=== PATIENT | male | born 1935 | race Caucasian/White ===

== ENCOUNTER 2019-03-04 05:13 | Inpatient (IN) ==
[2019-02-25 09:50] LABS: HEMATOCRIT 45.5 % (42.0-52.0); HEMOGLOBIN 15.1 g/dL (14.0-18.0); MCH 31.5 PG (27-31); MCHC 33.2 g/dL (33-37); MCV 94.8 FL (81-99); MPV 9.9 FL (7.4-10.4); RBC 4.8 XMIL (4.7-6.1); RDW 14.3 % (11.5-14.5); WBC 5.33 X1000 (4.8-10.8)
[2019-02-25 10:20] LABS: AGAP 11; BUN 18 mg/dL (8-22); CALCIUM 9.1 mg/dL (8.8-10.2); CHLORIDE 105 mmol/L (98-107); COSMO 284; ESTIMATED GFR > 60; GLUCOSE 105 mg/dL (70-104); POTASSIUM 4.6 mmol/L (3.5-5.1); SODIUM 141 mmol/L (136-145); TCO2 25 mmol/L (25-35)
[2019-03-04] MEDS ORDERED: INVANZ 1 GM/NS 1 GM/50 ML IVPB ONE (05:37)
[2019-03-04] MEDS ORDERED: LR 500 ML ONE (05:37)
[2019-03-04] MEDS ORDERED: ENTEREG ONE (05:37)
[2019-03-04] MEDS ORDERED: FENTANYL ONE ×3 (06:26→11:02)
[2019-03-04] MEDS ORDERED: DIPRIVAN 1% ONE (06:26)
[2019-03-04] MEDS ORDERED: ROBINUL ONE ×2 (06:28→12:15)
[2019-03-04] MEDS ORDERED: QUELICIN (DOSE) ONE (06:28)
[2019-03-04] MEDS ORDERED: NORCURON ONE (06:28)
[2019-03-04] MEDS ORDERED: STERILE WATER INJ. ONE (06:28)
[2019-03-04] MEDS ORDERED: XYLOCAINE-MPF 2% ONE (06:28)
[2019-03-04] MEDS ORDERED: LR 1,000 ML ONE ×2 (06:30→13:38)
[2019-03-04] MEDS ORDERED: XYLOCAINE 1%/EPI 1:100,000 ONE (06:30)
[2019-03-04] MEDS ORDERED: REGLAN ONE (06:43)
[2019-03-04] MEDS ORDERED: PEPCID ONE (06:43)
[2019-03-04] MEDS ORDERED: EXPAREL 1.3% ONE (07:16)
[2019-03-04] MEDS ORDERED: MARCAINE 0.5% ONE (07:16)
[2019-03-04 07:55] LABS: URINE SOURCE CATH
[2019-03-04 07:58] LABS: BILIRUBIN URINE NEGATIVE (NEGATIVE); BLOOD URINE NEGATIVE (NEGATIVE); COLOR YELLOW; GLUCOSE URINE NEGATIVE (NEGATIVE); KETONE URINE 40 mg/dL (NEGATIVE); LEUKOCYTES URINE TRACE (NEGATIVE); NITRITE URINE NEGATIVE (NEGATIVE); PH URINE 5.5; PROTEIN URINE TRACE mg/dL (NEGATIVE); SP GRAVITY URINE 1.024; TURBIDITY URINE CLEAR (CLEAR); UROBILINOGEN URINE NORMAL (NORMAL)
[2019-03-04 08:06] LABS: UR EPITHELIAL CELLS <10 /HPF (<10); URINE BACTERIA NEGATIVE /HPF; URINE WBC <10 /HPF (<10)
[2019-03-04 08:16] LABS: URINE YEAST NONE SEEN
[2019-03-04] MEDS ORDERED: OFIRMEV 1000 MG/ISOTONIC SOLN 1,000 MG/100 ML BOTTLE ONE (09:28)
[2019-03-04] MEDS ORDERED: DECADRON ONE (10:40)
[2019-03-04] MEDS ORDERED: ZOFRAN ONE (10:40)
[2019-03-04] MEDS ORDERED: NEOSTIGMINE ONE (12:16)
[2019-03-04] MEDS: LR 1,000 ML IV SCH (13:55)
[2019-03-04] MEDS ORDERED: MORPHINE ONE (14:03)
[2019-03-04] MEDS: OFIRMEV 1000 MG/ISOTONIC SOLN 1,000 MG/100 ML BOTTLE IV SCH ×2 (15:00→20:55)
[2019-03-04] MEDS: PERIDEX MT SCH (20:56)
[2019-03-04] MEDS: PROSCAR PO SCH (20:56)
[2019-03-04] MEDS: COREG PO SCH (20:56)
[2019-03-04] MEDS: CRESTOR PO SCH (20:56)
[2019-03-04] MEDS: ULTRAM PO PRN (21:06)
--- NOTE | 2019-03-04 22:33 | OPERATIVE NOTE ---
PROCEDURE DATE: 03/04/2019 OPERATIVE NOTE: [facility] diagnose 121. 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 PROCEDURE PERFORMED: Laparoscopic total proctocolectomy with end ileostomy. ESTIMATED BLOOD LOSS: 150 mL. SPECIMENS: 1. Colon and proximal rectum. 2. Distal rectum and anus. ANESTHESIA: General with TAP. FINDINGS: No significant intraabdominal abnormalities noted. INDICATIONS: An 83-year-old gentleman with longstanding ulcerative colitis. His colonoscopy this year showed progression to dysplasia. He has numerable bowel movements a day with urgency incontinence refractory to his longstanding medications. OPERATIVE NOTE: Risks, benefits, and alternatives were discussed with patient. He consented for procedure. He was seen preoperatively, and surgical site was confirmed. He was marked by our ostomy nurse and then taken to the operating room and placed in supine position. General anesthesia was induced. Incisional blocks were administered. A TAP block was performed with Exparel. He was placed in lithotomy, and his perineum was prepped with Betadine, and his abdomen was prepped chlorhexidine after removal of hair with clippers. After a time-out, we placed a Rusty trocar in supraumbilical location in an open fashion protecting the underlying structures. We then insufflated his abdomen. A 5 mm trocar was placed in suprapubic location above the reflection of bladder and a 12 mm was placed in left lower quadrant. We placed him in Trendelenburg left side down and identified the ileocolic pedicle, encircled this and divided with a vascular load staple. Then medial to lateral, we mobilized the right colon. The terminal ileum was divided with a purple load stapler, and we continued our mobilization medial to lateral and also entered the lesser sac, dividing the transverse colon mesocolon. We worked around the splenic flexure at which point we placed another 5 mm trocar in the right lower quadrant and took down the left colon along the white line taking down the splenic flexure fully and divided the mesocolon down to the level of the sigmoid colon at which point this mobilized protecting the retroperitoneal structures, and then we continued our pelvic dissection. He had a very narrow pelvis. At this point, we extended our suprapubic incision, placed an Abiel retractor and took the medial and lateral attachments of the rectum down below the peritoneal reflection anteriorly and posteriorly, dividing the mesorectum with the LigaSure device. We carried this down as far as we could. Then from a perineal approach, we encircled the anus and carried this dissection meeting the two, completing our resection and passed this off. We noted hemostasis. The sacral vessels, iliac vessels and the ureters were protected throughout all this. We passed the specimen off. At this point, we closed the muscles, reapproximated the pelvic floor with 0 Vicryl. The deep dermis was closed with 0 Vicryl, and the skin was closed with 4-0 Monocryl. A drain was placed in the pelvis and the peritoneum was reapproximated over this, closing this defect. We noted hemostasis. We irrigated that until clear. There was no bleeding. At this point, we closed our trocar sites, fascia with 0 Vicryl and closed the skin with 4-0 Monocryl. We then created an ostomy site at the predetermined location through the rectus, splitting the rectus muscle and brought our ileum out through this. Please also note the duodenum was protected during the medial and lateral dissection as well. The ilium was brought out. It laid nice. There was no undue tension. It was not twisted. The peritoneum was reapproximated with a running Vicryl suture. The fascia was closed with a #1 PDS suture in a running fashion. Skin was closed with 4- 0 Monocryl. Dermabond was applied. At this point, we matured our ileostomy removing the staple line and using Brooking type sutures of 3-0 Vicryl. We matured this. Our final counts were correct. He tolerated procedure well. Please note that our instruments and gloves were changed prior to fascial wound closure. Dermabond was applied. He was awakened and transferred to recovery. I spoke with the family. The Bonilla catheter was in place. The urine was clear at the end of the case. cc: Dung Allison MD
[2019-03-05] MEDS: LR 1,000 ML IV SCH ×3 (01:37→14:48)
[2019-03-05] MEDS: OFIRMEV 1000 MG/ISOTONIC SOLN 1,000 MG/100 ML BOTTLE IV SCH ×2 (02:06→09:24)
[2019-03-05] MEDS: ULTRAM PO PRN (02:06)
[2019-03-05 07:14] LABS: BASO# 0.01 X1000 (0.0-0.2); BASO% 0.1 % (0.0-0.8); HEMATOCRIT 38.5 % (42.0-52.0); LYMPH# 0.52 X1000 (1.2-3.4); LYMPH% 5.5 % (20.5-51.1); MCHC 33.8 g/dL (33-37); MCV 94.8 FL (81-99); MONO# 1.12 X1000 (0.11-0.59); MONO% 11.9 % (1.7-9.3); MPV 10.6 FL (7.4-10.4); NEUT# 7.73 X1000 (1.4-6.5); NEUT% 82.5 % (42.2-75.2); PLT 138 X1000 (130-400); RBC 4.06 XMIL (4.7-6.1); RDW 14.6 % (11.5-14.5); WBC 9.38 X1000 (4.8-10.8)
[2019-03-05 07:32] LABS: AGAP 9; BUN 16 mg/dL (8-22); CALCIUM 8.4 mg/dL (8.8-10.2); CHLORIDE 103 mmol/L (98-107); COSMO 277; ESTIMATED GFR > 60; GLUCOSE 142 mg/dL (70-104); POTASSIUM 4.5 mmol/L (3.5-5.1); SODIUM 137 mmol/L (136-145); TCO2 25 mmol/L (25-35)
[2019-03-05] MEDS: ASPIRIN PO SCH (09:21)
[2019-03-05] MEDS: COREG PO SCH ×2 (09:21→23:55)
[2019-03-05] MEDS: MAG-OX PO SCH (09:21)
[2019-03-05] MEDS: LOVENOX SUBQ SCH (09:22)
[2019-03-05] MEDS: PERIDEX MT SCH ×2 (09:22→23:55)
[2019-03-05] MEDS ORDERED: OFIRMEV 1000 MG/ISOTONIC SOLN 1,000 MG/100 ML BOTTLE IV PRN (14:36)
[2019-03-05] MEDS: ZOFRAN IV PRN (14:45)
--- NOTE | 2019-03-05 20:10 | GENERAL SURGERY PROGRESS NOTE ---
DATE: 03/05/2019 SUBJECTIVE: He is doing well. The ostomy is functioning. His pain, he describes, is only soreness. He is taking Ultram as needed. No fevers. No tachycardia. Blood pressure 143/65.General: He is alert. His abdomen is soft. Incision intact. Ostomy is pink and viable. Stool in the bag. White count is 9. Hematocrit is 38. Platelets 138,000. His creatinine is 1.0. Urine output has been adequate. DIONY drain is becoming more serosanguineous. ASSESSMENT AND PLAN: This is an 83-year-old gentleman status post left total proctocolectomy with end ileostomy. He is doing very well. We will keep his Bonilla given the pelvic dissection. Otherwise, we will keep him on clear liquids and begin advancing his diet, and removing his Bonilla. I have encouraged him to be out of bed. We will decrease his IV fluids to 50 today. He is on prophylactic Lovenox as well as his appropriate home medications. We will follow along. cc: Dung Allison MD
[2019-03-05] MEDS: CRESTOR PO SCH (23:55)
[2019-03-05] MEDS: PROSCAR PO SCH (23:55)
[2019-03-06] MEDS: PERIDEX MT SCH ×2 (07:59→22:47)
[2019-03-06] MEDS: LOVENOX SUBQ SCH (07:59)
[2019-03-06] MEDS: COREG PO SCH ×2 (07:59→22:47)
[2019-03-06] MEDS: ASPIRIN PO SCH (07:59)
[2019-03-06] MEDS: MAG-OX PO SCH (07:59)
[2019-03-06] MEDS: LR 1,000 ML IV SCH (10:39)
[2019-03-06] MEDS: IMODIUM PO SCH (18:38)
--- NOTE | 2019-03-06 21:49 | GENERAL SURGERY PROGRESS NOTE ---
DATE: 03/06/2019 SUBJECTIVE: He complains only of incisional soreness. He is doing well. OBJECTIVE: No fevers. No tachycardia. Blood pressure 136/64. In general he is alert. Abdomen is soft. His incision is intact. Ostomy is pink and viable. Stool in the bag. Quite a large volume of liquid stool, actually. Urine output has been fine. It is a little particulate. DIONY drain is downtrending, serosanguineous. LABORATORY DATA: No new labs this morning. ASSESSMENT AND PLAN: An 83-year-old gentleman status post total proctocolectomy laparoscopically. We will keep his Bonilla catheter. Even though he is day 2, he does have some particulate changes in his urine. His renal function was normal. I have him on Lovenox, lactated Ringer at 50. He is on clear liquids. We will give him a soft diet, otherwise continue out of bed and ambulating. cc: Dung Allison MD
[2019-03-06] MEDS: PROSCAR PO SCH (22:47)
[2019-03-06] MEDS: CRESTOR PO SCH (22:47)
[2019-03-07] MEDS: ULTRAM PO PRN (08:14)
[2019-03-07] MEDS: ZOFRAN IV PRN ×2 (08:18→15:15)
[2019-03-07] MEDS: LR 1,000 ML IV SCH (10:12)
[2019-03-07] MEDS: COREG PO SCH ×2 (10:15→22:45)
[2019-03-07] MEDS: MAG-OX PO SCH (10:16)
[2019-03-07] MEDS: ASPIRIN PO SCH (10:16)
[2019-03-07] MEDS: PERIDEX MT SCH ×2 (10:16→22:45)
[2019-03-07] MEDS: IMODIUM PO SCH ×3 (10:16→17:19)
[2019-03-07] MEDS: LOVENOX SUBQ SCH (10:16)
[2019-03-07] MEDS: CRESTOR PO SCH (22:45)
[2019-03-07] MEDS: PROSCAR PO SCH (22:45)
[2019-03-08] MEDS: ZOFRAN IV PRN (03:17)
[2019-03-08] MEDS: ULTRAM PO PRN ×2 (03:17→21:32)
[2019-03-08] MEDS: LR 1,000 ML IV SCH (06:13)
--- NOTE | 2019-03-08 07:34 | GENERAL SURGERY PROGRESS NOTE ---
DATE: 03/07/2019 SUBJECTIVE: He is doing okay. Drain output is serosanguineous. Urine is somewhat particulate, but is clearing. No fevers. No tachycardia. Blood pressure 150/89. His ileostomy function, his abdomen is soft. He has not had any new labs this morning. He has had some belching. Medication: He is on Lovenox. I started him on low-dose Imodium. He is on appropriate home medication. ASSESSMENT AND PLAN: He is an 83-year-old gentleman status post laparoscopic total proctocolectomy. His ostomy is functioning. He does not feel quite as well today. I have encouraged him to go slow with the food. His urine is clearing. There is no gross blood but it is somewhat particulate. As such, given his history of urinary retention, we are continuing this and low pelvic dissection. I do not see any wound issues. We have consulted Kinsey, our wound nurse. She will see him as well as physical therapy. cc: Dung Allison MD
[2019-03-08] MEDS: PERIDEX MT SCH ×2 (11:10→21:36)
[2019-03-08] MEDS: IMODIUM PO SCH ×3 (11:10→21:33)
[2019-03-08] MEDS: LOVENOX SUBQ SCH (11:10)
[2019-03-08] MEDS: ASPIRIN PO SCH (11:10)
[2019-03-08] MEDS: MAG-OX PO SCH (11:10)
[2019-03-08] MEDS: COREG PO SCH ×2 (11:10→21:33)
--- NOTE | 2019-03-08 13:20 | PROGRESS NOTE ---
DATE: 03/08/2019 SUBJECTIVE: Mr. Mikey Thorne underwent a laparoscopic total proctocolectomy with end ileostomy per Dr. Allison approximately 4 days ago. His wounds are healing well. He has a drain in the pelvis. He has not had much out of his ostomy just some liquid. His appetite is not good. He is on a GI soft diet. OBJECTIVE: Heart rate is 84, blood pressure 149/78, and O2 saturation 98%. He is afebrile. His perineal wound he rates the pain as 7/10. PLAN: I told him just to eat what he wants to eat. He is able to drink some liquids. He is on IV fluids at 50 mL an hour. We will try to increase his activity, and make sure he can tolerate p.o. well. Overall, I think he is doing well. cc: MD Dung Alarcon MD
[2019-03-08] MEDS: CRESTOR PO SCH (21:33)
[2019-03-08] MEDS: PROSCAR PO SCH (21:33)
[2019-03-08] MEDS: PEPCID PO SCH (22:10)
[2019-03-09] MEDS: LR 1,000 ML IV SCH ×2 (05:12→21:12)
[2019-03-09 07:38] LABS: HEMATOCRIT 39.6 % (42.0-52.0); HEMOGLOBIN 13.4 g/dL (14.0-18.0)
[2019-03-09] MEDS ORDERED: PEPCID PO SCH (09:00)
[2019-03-09] MEDS: IMODIUM PO SCH ×3 (09:56→18:57)
--- NOTE | 2019-03-09 11:00 | PROGRESS NOTE ---
DATE: 03/09/2019 I was called during the night about Mr. Thorne having vomiting. They described it as coffee- grounds. We did check hematocrit this morning and it is stable at 39%. He is status post laparoscopic total proctocolectomy. He still has a DIONY drain in place. He is frail but he is sitting up, awake and cooperative this morning. He is having output from his end-ileostomy. His heart rate is 82, blood pressure 129/70, O2 saturation 96%. PLAN: He is on a GI soft diet. He has been mostly in bed. We will try to increase his activity. Dr. Allison returns tomorrow. cc: MD Dung Alarcon MD
[2019-03-09] MEDS: PEPCID PO SCH (11:18)
[2019-03-09] MEDS: COREG PO SCH ×2 (11:18→22:44)
[2019-03-09] MEDS: LOVENOX SUBQ SCH (11:19)
[2019-03-09] MEDS: ASPIRIN PO SCH (18:56)
[2019-03-09] MEDS: MAG-OX PO SCH (18:57)
[2019-03-09] MEDS: PERIDEX MT SCH ×2 (18:57→22:43)
[2019-03-09] MEDS: CRESTOR PO SCH (22:43)
[2019-03-09] MEDS: ULTRAM PO PRN (22:44)
[2019-03-09] MEDS: PROSCAR PO SCH (22:44)
[2019-03-10] MEDS: PEPCID PO SCH (09:38)
[2019-03-10] MEDS: IMODIUM PO SCH ×3 (09:38→23:10)
[2019-03-10] MEDS: LOVENOX SUBQ SCH (09:38)
[2019-03-10] MEDS: COREG PO SCH ×2 (09:38→23:10)
[2019-03-10] MEDS: PERIDEX MT SCH ×2 (09:38→23:10)
[2019-03-10] MEDS: MAG-OX PO SCH (09:38)
[2019-03-10] MEDS: ASPIRIN PO SCH (09:39)
--- NOTE | 2019-03-10 11:31 | GENERAL SURGERY PROGRESS NOTE ---
DATE: 03/10/2019 SUBJECTIVE: Feels better. He is ambulating. Urine output is adequate. His ostomy output is 1725. Drain output is serosanguineous. His incisions are intact. His ostomy is pink, viable. LABORATORY DATA: No new labs this morning. ASSESSMENT AND PLAN: An 83-year-old gentleman, status post total proctocolectomy with end ileostomy. He is on prophylactic Lovenox. I am going to increase his fluids given his ostomy output and his urine is quite dark, and I am going to increase his Imodium. Will discontinue his Bonilla. If we can get his ostomy output regulated, anticipate home soon. cc: Dung Allison MD
[2019-03-10] MEDS: LR 1,000 ML IV SCH ×2 (14:15→17:57)
[2019-03-10] MEDS: PROSCAR PO SCH (23:10)
[2019-03-10] MEDS: CRESTOR PO SCH (23:10)
[2019-03-11] MEDS: LR 1,000 ML IV SCH ×5 (02:09→23:16)
[2019-03-11] MEDS: PEPCID PO SCH (08:43)
[2019-03-11] MEDS: LOVENOX SUBQ SCH (08:43)
[2019-03-11] MEDS: PERIDEX MT SCH ×2 (08:43→23:18)
[2019-03-11] MEDS: COREG PO SCH ×2 (08:43→23:17)
[2019-03-11] MEDS: ASPIRIN PO SCH (08:44)
[2019-03-11] MEDS: MAG-OX PO SCH (08:44)
[2019-03-11] MEDS: IMODIUM PO SCH ×3 (08:44→23:17)
[2019-03-11 10:09] LABS: AGAP 12; BUN 26 mg/dL (8-22); CALCIUM 7.8 mg/dL (8.8-10.2); CHLORIDE 106 mmol/L (98-107); COSMO 280; CREATININE 0.8 mg/dL (0.7-1.2); ESTIMATED GFR > 60; GLUCOSE 92 mg/dL (70-104); MAGNESIUM 1.9 mg/dL (1.5-2.7); SODIUM 138 mmol/L (136-145); TCO2 20 mmol/L (25-35)
[2019-03-11 10:24] LABS: BASO# 0.07 X1000 (0.0-0.2); BASO% 1.1 % (0.0-0.8); EOS# 0.37 X1000 (0.0-0.7); EOS% 5.7 % (0.0-10.0); HEMATOCRIT 36.5 % (42.0-52.0); LYMPH# 0.83 X1000 (1.2-3.4); LYMPH% 12.8 % (20.5-51.1); MCH 31.4 PG (27-31); MCHC 32.9 g/dL (33-37); MCV 95.5 FL (81-99); MONO# 0.74 X1000 (0.11-0.59); MONO% 11.5 % (1.7-9.3); MPV 11.1 FL (7.4-10.4); NEUT# 4.45 X1000 (1.4-6.5); NEUT% 68.9 % (42.2-75.2); PLT 80 X1000 (130-400); RBC 3.82 XMIL (4.7-6.1); RDW 14.9 % (11.5-14.5); WBC 6.46 X1000 (4.8-10.8)
--- NOTE | 2019-03-11 13:34 | GENERAL SURGERY PROGRESS NOTE ---
DATE: 03/11/2019 Doing well. His ostomy is functioning. There has been more manageable output. They report 500. His DIONY drain is serosanguineous. Abdomen is soft. Ostomy is pink, viable. Urine is clear. I reviewed his labs. White count is 6, hematocrit is 36. Creatinine is 0.8. Electrolytes are okay. Potassium is 4, magnesium 1.9. ASSESSMENT/PLAN: An 83-year-old gentleman status post total proctocolectomy. His perineal incision is healing well. His ostomy is functioning. We will continue a soft diet. We will decrease intravenous fluids. Continue his current Imodium dose. Remove his Bonilla and plan for possible home tomorrow. cc: Dung Allison MD
[2019-03-11] MEDS: CRESTOR PO SCH (23:17)
[2019-03-11] MEDS: PROSCAR PO SCH (23:17)
[2019-03-12] MEDS: PERIDEX MT SCH (09:57)
[2019-03-12] MEDS: COREG PO SCH (09:57)
[2019-03-12] MEDS: ASPIRIN PO SCH (09:57)
[2019-03-12] MEDS: MAG-OX PO SCH (09:57)
[2019-03-12] MEDS: LOVENOX SUBQ SCH (09:57)
[2019-03-12] MEDS: PEPCID PO SCH (09:57)
[2019-03-12] MEDS: IMODIUM PO SCH (09:57)
[2019-03-12] MEDS: LR 1,000 ML IV SCH (11:28)
[2019-03-12 12:15] VITALS: BP 115/57
--- NOTE | 2019-03-12 22:16 | DISCHARGE SUMMARY ---
ADMISSION DATE: 03/04/2019 DISCHARGE DATE: 03/12/2019 ADMITTING DIAGNOSIS: Ulcerative colitis with dysplasia, refractory medical management. POSTOP: Ulcerative colitis with dysplasia, refractory medical management. PROCEDURE PERFORMED: Laparoscopic total proctocolectomy. HPI: This 83-year-old gentleman who has had longstanding ulcerative colitis is becoming difficult to control. He has numerous bowel movements a day with significant urgency and incontinence and recent colonoscopy showed dysplasia throughout the colon. HOSPITAL COURSE: The patient was taken the operating room on 03/04/2019 for above procedure. For details please see dictated operative note. He began having bowel function via his ileostomy on day 1 or 2 but did have some nausea, vomiting over the next couple days. This resolved. His urine was initially particulate. As such we kept it for several days but removed this and he was able to void. His pain control is adequate. Removed his drain on the day of discharge. Incision intact. He had teaching via our ostomy nurse. I did have to start him on Imodium and we titrated this up to 4 mg t.i.d. and his ostomy output was appropriate. He was felt safe for discharge. Followup appointment with me on Sunday. DISPOSITION: Home to self-care with care of his family. Discharge instructions were given in written and verbal format. We gave detailed instructions on measuring his ileostomy output and to call with output greater than a liter and a half and I have encouraged him to drink at least 2 L of water, Gatorade daily. Prescription for his Imodium 4 mg t.i.d. as well as Ultram as needed was provided to him and he will continue his home medication. DISCHARGE DIET: GI soft. cc: Dung Allison MD
== END 2019-03-12 14:35 | disposition home or self-care (01) | DRG 331 ==
LOC: SURHOLD 05:13 → 4N 13:36
PROVIDERS: ADMIT Surgery; ATTEND Surgery